=== PATIENT | male | born 1985 | race Caucasian/White ===

== ENCOUNTER 2018-07-06 01:16 | Emergency (ER) | payer MEDICARE, OTHER ==
[~2018-07-06] VITALS: Ht 170.2 cm; Wt 54.5 kg
[2018-07-06 01:16] VITALS: BP 129/93
[2018-07-06] MEDS ORDERED: PHENobarbital 30 MG TAB PO ONE (02:15)
== END 2018-07-06 02:34 | disposition home or self-care (01) ==
LOC: M ED 01:16
DX: F11.20 Opioid dependence, uncomplicated (principal); Z88.5 Allergy status to narcotic agent; Z88.8 Allergy status to other drugs, medicaments and biological substances

== ENCOUNTER 2019-01-03 17:33 | Emergency (ER) | payer MEDICARE, OTHER ==
[~2019-01-03] VITALS: Ht 167.6 cm; Wt 65.9 kg
[2019-01-03] MEDS ORDERED: SERT-138 (17:40)
[2019-01-03] MEDS ORDERED: PRAZ1CAP (17:40)
[2019-01-03] MEDS ORDERED: MIRTAZAPINE (17:40)
[2019-01-03] MEDS ORDERED: CLON-412 (17:40)
--- NOTE | 2019-01-03 18:04 | REP ---
Clinical: Recent dislocation with continued pain. Technique: Internal rotation, external rotation, and Y view of the left shoulder. Findings: Y view suggests continued anterior glenohumeral joint subluxation and correlation is recommended. Internal rotation and external rotation views demonstrate a subtle bony irregularity inferior to the glenoid rim which may reflect subtle associated glenoid/scapular fracture. Correlation with physical examination is recommended. If necessary CT of the shoulder should be considered. Impression: 1. Degenerative changes related to multiple shoulder dislocation. 2. Cannot exclude continued mild acute anterior subluxation. 3. A small bony irregularity along the inferior margin of the glenoid at the junction with a scapula may represent a small fracture and correlation is required. CT should be considered if necessary. Electronically Signed by Carlos Bailey MD 01/03/2019 05:56 P
[2019-01-03 19:44] VITALS: BP 132/88
[2019-01-03] MEDS ORDERED: traMADol 50 MG TAB PO ONE (19:45)
--- NOTE | 2019-01-09 20:54 | ED PDOC ---
Post-Departure Follow-Up ncog faxed formal report of left shoulder film for fu Sage Munguia MD Jan 09, 2019 20:53
== END 2019-01-03 19:45 | disposition home or self-care (01) ==
LOC: M ED 17:33
DX: M25.512 Pain in left shoulder (principal); G89.29 Other chronic pain; M62.830 Muscle spasm of back; Z87.828 Personal history of other (healed) physical injury and trauma; F11.20 Opioid dependence, uncomplicated; F17.200 Nicotine dependence, unspecified, uncomplicated

== ENCOUNTER → 2019-06-05 | Outpatient (CLI) | payer OTHER ==
[~2019-06-05] MED LIST: CLON-412; MIRTAZAPINE; PRAZ1CAP; SERT-138
[2019-06-05 11:41] LABS: HEMATOCRIT 45.2 % (42.0-52.0); HEMOGLOBIN 14.2 g/dl (13.5-17.5); MEAN CORPUSCULAR HEMOGLOBIN 29.5 pg (27.0-33.0); MEAN CORPUSCULAR HGB CONC 31.4 g/dl (32.0-36.5); PLATELET COUNT, AUTOMATED 208 10^3/uL (150-450); RED BLOOD COUNT 4.81 10^6/uL (4.30-6.10); WHITE BLOOD COUNT 11.2 10^3/uL (4.0-10.0)
[2019-06-05 13:58] LABS: HEPATITIS B SURFACE ANTIGEN NEGATIVE (NEGATIVE); HEPATITIS C VIRUS ABY INDEX 0.2 INDEX (<0.8); HIV 1&2 SCREEN CENTAUR NEGATIVE (NEGATIVE)
[2019-06-05 14:05] LABS: BLOOD UREA NITROGEN 12 MG/DL (7-18); CARBON DIOXIDE LEVEL 25 MEQ/L (21-32); CHLORIDE LEVEL 105 MEQ/L (98-107); CREATININE FOR GFR 0.92 MG/DL (0.70-1.30); GLOMERULAR FILTRATION RATE > 60.0 (>60); GLUCOSE, FASTING 153 MG/DL (70-100); POTASSIUM SERUM 4.3 MEQ/L (3.5-5.1); SODIUM LEVEL 139 MEQ/L (136-145)
[2019-06-05 14:06] LABS: ALBUMIN 4.1 GM/DL (3.2-5.2); ALT/SGPT 24 U/L (12-78); BILIRUBIN,TOTAL 0.3 MG/DL (0.2-1.0); TOTAL PROTEIN 7.9 GM/DL (6.4-8.2)
[2019-06-05 14:24] LABS: CHLAMYDIA DNA AMPLIFICATION NEGATIVE (NEGATIVE); GC DNA AMPLIFICATION NEGATIVE (NEGATIVE)
--- NOTE | 2019-06-06 07:04 | ECGEPIP ---
[facility] Test Date: 2019-06-05 Pat Name: [place] Department: Room: - Gender: Male Referral Coordinator: EMILEE : 1985 Requested By: Homer Eckert Order Number: [id number] Reading MD: Chavo Stephen Measurements Intervals [place] Rate: 75 P: 40 CA: 129 QRS: 102 QRSD: 107 T: 29 QT: 358 QTc: 400 Interpretive Statements Normal sinus rhythm Vertical axis Nonspecific minor T-wave abnormality Comparison tracing not on file Electronically Signed on 06-06-2019 7:04:08 EST by Chavo Stephen
== END ==
LOC: M LAB 10:55
PROVIDERS: ATTEND Family Medicine
DX: F11.20 Opioid dependence, uncomplicated (principal)

== ENCOUNTER → 2022-04-08 | Outpatient (CLI) | payer OTHER ==
[2022-04-08 09:17] LABS: HEMATOCRIT 44.7 % (42.0-52.0); HEMOGLOBIN 14.1 g/dl (13.5-17.5); MEAN CORPUSCULAR HEMOGLOBIN 29.1 pg (27.0-33.0); MEAN CORPUSCULAR HGB CONC 31.5 g/dl (32.0-36.5); MEAN CORPUSCULAR VOLUME 92.2 fl (80.0-96.0); PLATELET COUNT, AUTOMATED 243 10^3/uL (150-450); RED BLOOD COUNT 4.85 10^6/uL (4.30-6.10); WHITE BLOOD COUNT 10.1 10^3/uL (4.0-10.0)
[2022-04-08 09:57] LABS: ALBUMIN 3.8 GM/DL (3.2-5.2); ALT/SGPT 38 U/L (12-78); BILIRUBIN,TOTAL 0.2 MG/DL (0.2-1.0); BLOOD UREA NITROGEN 12 MG/DL (7-18); CALCIUM LEVEL 9.4 MG/DL (8.5-10.1); CARBON DIOXIDE LEVEL 29 MEQ/L (21-32); CHLORIDE LEVEL 104 MEQ/L (98-107); CREATININE FOR GFR 0.86 MG/DL (0.70-1.30); GLOMERULAR FILTRATION RATE > 60.0 (>60); GLUCOSE, FASTING 91 MG/DL (70-100); POTASSIUM SERUM 4.3 MEQ/L (3.5-5.1); SODIUM LEVEL 136 MEQ/L (136-145)
[2022-04-08 10:45] LABS: HEPATITIS B SURFACE ANTIGEN NEGATIVE (NEGATIVE)
[2022-04-08 11:03] LABS: GC DNA AMPLIFICATION NEGATIVE (NEGATIVE)
[2022-04-08 11:09] LABS: HIV 1&2 SCREEN CENTAUR NEGATIVE (NEGATIVE)
== END ==
LOC: M LAB 07:57
PROVIDERS: ATTEND Family Medicine
DX: F11.20 Opioid dependence, uncomplicated (principal)

== ENCOUNTER 2024-03-03 16:04 | Emergency (ER) | payer MEDICAID, OTHER ==
[~2024-03-03] VITALS: Ht 167.6 cm; Wt 59.1 kg
[2024-03-03] MEDS ORDERED: METH-1177 PO (16:27)
[2024-03-03] MEDS: NS 1,000 ML IV ONE ×2 (16:47→18:56)
[2024-03-03] MEDS: ACETAMINOPHEN *IV* 1,000 MG in IV 1 EA IV ONE (16:47)
[2024-03-03 16:57] LABS: BASO # 0.1 10^3/uL (0.0-0.2); BASO % 0.4 % (0.0-1.0); EOS % 0.2 % (0.0-3.0); HEMATOCRIT 47.5 % (42.0-52.0); HEMOGLOBIN 16.4 g/dl (13.5-17.5); LYMPH # 1.2 10^3/uL (1.5-5.0); LYMPH % 9.7 % (24.0-44.0); MEAN CORPUSCULAR HEMOGLOBIN 30.4 pg (27.0-33.0); MEAN CORPUSCULAR HGB CONC 34.5 g/dl (32.0-36.5); MEAN CORPUSCULAR VOLUME 88.1 fl (80.0-96.0); MONO # 0.6 10^3/uL (0.0-0.8); NEUTROPHILS # 10.2 10^3/uL (1.5-8.5); NEUTROPHILS % 84.1 % (36.0-66.0); PLATELET COUNT, AUTOMATED 271 10^3/uL (150-450); RED BLOOD COUNT 5.39 10^6/uL (4.30-6.10); WHITE BLOOD COUNT 12.1 10^3/uL (4.0-10.0)
[2024-03-03] MEDS ORDERED: ISOVUE-370 76% 100ML VIAL As Ordered ONE (17:03)
[2024-03-03 17:19] LABS: LIPASE 27 U/L (12-53)
[2024-03-03 17:21] LABS: INR 1.14; PROTHROMBIN TIME 14.2 SECONDS (12.5-14.5)
[2024-03-03 17:21] LABS: ALBUMIN 4.1 G/DL (3.2-5.2); ALKALINE PHOSPHATASE 116 U/L (46-116); ALT/SGPT 18 U/L (7.0-40); AST/SGOT 22 U/L (<34); BILIRUBIN,DIRECT 0.3 MG/DL (<0.4); BLOOD UREA NITROGEN 10 MG/DL (9-23); CALCIUM LEVEL 10.2 MG/DL (8.5-10.1); CARBON DIOXIDE LEVEL 25 MMOL/L (20-31); CHLORIDE LEVEL 106 MMOL/L (98-107); GLOMERULAR FILTRATION RATE > 60.0 (>60); GLUCOSE, FASTING 117 MG/DL (60-100); POTASSIUM SERUM 4.7 MMOL/L (3.5-5.1); SODIUM LEVEL 139 MMOL/L (136-145); TOTAL PROTEIN 8.1 G/DL (5.7-8.2)
[2024-03-03] MEDS: PROMETHAZINE 25MG/ML 1ML VIAL IV ONE (18:00)
[2024-03-03] MEDS: MORPHINE 2 MG/ML 1ML VIAL IV ONE (18:00)
[2024-03-03 18:51] VITALS: TEMP 96.9
[2024-03-03] MEDS: BUPRENORPHINE/NALOXONE 8-2MG SUBLINGUAL TABLET(SUBOXONE) SL ONE ×2 (18:56→21:04)
[2024-03-03] MEDS: OVERDOSE RESCUE KIT XX SCH (18:57)
[2024-03-03 18:58] LABS: CPK CREATINE PHOSPHOKINASE 71 U/L (46-171)
[2024-03-03 20:30] VITALS: BP 125/96; O2SAT 100
== END 2024-03-03 21:40 | disposition left against medical advice (07) ==
LOC: M ED 16:04 → EDBD 16:04 → M ED 21:40
DX: F11.23 Opioid dependence with withdrawal (principal); R11.2 Nausea with vomiting, unspecified; I45.19 Other right bundle-branch block; G89.4 Chronic pain syndrome; Z88.5 Allergy status to narcotic agent; Z53.9 Procedure and treatment not carried out, unspecified reason
CPT/HCPCS: 71045; 71275; 74178; 80047; 80048; 80076; 82550; 83605; 83690; 85025; 85610; 86850; 86900; 86901; 87040; 87486; 87581; 87633; 87798; 93005; 93041; 96374; 96375; 99285; J0131; J2550; Q9967